=== PATIENT | female | born 1965 | race Native Hawaiian/Other Pacific Islander ===

== ENCOUNTER 2019-11-27 05:01 | Emergency (ER) | payer OTHER ==
[~2019-11-27] VITALS: Ht 162.6 cm; Wt 95.3 kg
[2019-11-27 05:10] VITALS: TEMP 97.3
[2019-11-27 07:20] VITALS: BP 136/84
== END 2019-11-27 07:20 | disposition home or self-care (01) ==
LOC: ED 05:01
DX: M62.830 Muscle spasm of back (principal)
CPT/HCPCS: 81000; 96372; 99283; J1885; J2270

== ENCOUNTER → 2019-11-29 17:08 | Outpatient (CLI) | payer OTHER | END | disposition home or self-care (01) | LOC: AMB 17:08 | DX: I46.9 Cardiac arrest, cause unspecified (principal) ==